=== PATIENT | female | born 1985 | race Caucasian/White ===

== ENCOUNTER 2021-02-15 08:30 | Outpatient (CLI) | payer OTHER, SELFPAY ==
[2021-02-15 19:15] LABS: Hematocrit 40.7 % (37.0-47.0); Hemoglobin 13.2 g/dL (12.0-15.0); Mean Corpuscular HGB Conc 32.4 g/dl (32-36); Mean Corpuscular Volume 92.5 fl (80-100); Mean Platelet Volume 10.4 fl (7.4-10.4); Platelet Count Result 197 k/mm3 (150-375); Red Cell Distribution Width 12.2 % (11.5-14.5); White Blood Count 4.8 K/mm3 (4.5-10.0)
[2021-02-15 19:22] LABS: Anion Gap 8 mmol/L (8-16); Blood Urea Nitrogen 15 mg/dL (7-17); Calcium 9.6 mg/dL (8.4-10.2); Carbon Dioxide 27 mmol/L (22-30); Chloride 104 mmol/L (98-107); Cholesterol 143 mg/dL (0-200); Estimated Glomerular Filt Rate > 60; Glucose 88 mg/dL (65-110); HDL Direct 67 mg/dL; Potassium 4.5 mmol/L (3.4-5.0); Sodium 139 mmol/L (137-145); Triglycerides 31 mg/dL (<150)
[2021-02-15 19:34] LABS: LDL Cholesterol Direct 55 mg/dL
[2021-02-15 19:39] LABS: Vitamin D 25 Hydroxy 48.3 ng/mL
== END 2021-02-15 08:31 | disposition home or self-care (01) ==
PROVIDERS: PCP Family Medicine; Visit Provider Physician Assistant Medical
DX: R53.82 Chronic fatigue, unspecified (principal); E55.9 Vitamin D deficiency, unspecified; Z13.1 Encounter for screening for diabetes mellitus; Z13.220 Encounter for screening for lipoid disorders
CPT/HCPCS: 36415; 80048; 80061; 82306; 82607; 85027

== ENCOUNTER 2023-01-30 08:24 | Outpatient (CLI) | payer OTHER, SELFPAY ==
[2023-01-30 15:24] LABS: Basophils Absolute Auto 0.1 K/mm3 (0.0-0.1); Basophils Percent Auto 1.3 % (0.2-1.2); Eosinophils Absolute Auto 0.2 K/mm3 (0-0.3); Eosinophils Percent Auto 4.4 % (0-4.4); Hematocrit 41.6 % (37.0-47.0); Hemoglobin 13.6 g/dL (12.0-15.0); Immature Granulocyte Absolute 0.01 K/mm3 (0.00-0.031); Immature Granulocyte Percent A 0.3 % (0-0.5); Lymphocytes Absolute Auto 1.22 K/mm3 (0.9-3.2); Lymphocytes Percent Auto 31.3 % (18.3-44.2); Mean Corpuscular HGB Conc 32.7 g/dl (32-36); Mean Corpuscular Hemoglobin 30.3 pg (26-34); Mean Corpuscular Volume 92.7 fl (80-100); Mean Platelet Volume 10.4 fl (7.4-10.4); Monocytes Absolute Auto 0.3 K/mm3 (0.1-0.6); Monocytes Percent Auto 8.7 % (2.6-8.5); Neutrophils Absolute Auto 2.1 K/mm3 (1.3-6.7); Platelet Count Result 206 k/mm3 (150-375); Red Blood Count 4.49 M/mm3 (4.2-5.4); White Blood Count 3.9 K/mm3 (4.5-10.0)
[2023-01-30 15:54] LABS: Vitamin D 25 Hydroxy 36.6 ng/mL
[2023-01-30 17:18] LABS: Iron 135 ug/dL (37-170)
[2023-01-30 17:32] LABS: Percent Iron Saturation 42 % (20-50)
[2023-02-05 05:10] LABS: FSH 6.7 mIU/mL (***); Progesterone 0.3 ng/mL (***); Prolactin 9.4 ng/mL (***)
[2023-02-05 22:26] LABS: Estradiol, Ultrasensitive 20 pg/mL
== END 2023-01-30 08:25 | disposition home or self-care (01) ==
LOC: ANHGOSHLAB 08:25
PROVIDERS: PCP Family Medicine; Visit Provider Obstetrics & Gynecology
DX: R53.82 Chronic fatigue, unspecified (principal); N92.0 Excessive and frequent menstruation with regular cycle
CPT/HCPCS: 36415; 82306; 82670; 83001; 83540; 83550; 84144; 84146; 84443; 85025

== ENCOUNTER 2023-04-23 16:32 | Outpatient (CLI) | payer OTHER, SELFPAY ==
--- NOTE | ~2023-04-23 | MM_ITS ---
EXAMINATION: MM screening ashutosh BI w tasha HISTORY: Screening TECHNIQUE: Craniocaudal and mediolateral oblique 3-D tomosynthesis images were obtained and synthetic 2-D images were generated. CAD analysis was submitted and interpreted. COMPARISON: No prior mammogram is available for comparison at this institution. BREAST PARENCHYMAL COMPOSITION: The breasts are extremely dense, which lowers the sensitivity of mamm ography FINDINGS: There is no evidence of suspicious mass, calcification, or architectural distortion to sugg est malignancy in either breast. There has been no suspicious interval change. IMPRESSION: 1. No mammographic evidence of malignancy. 2. Recommend routine screening mammography in one year. BI-RADS Category 1: Negative Reviewed, dictated and finalized at location A.
== END 2023-04-23 16:33 | disposition home or self-care (01) ==
PROVIDERS: PCP Family Medicine; Visit Provider Obstetrics & Gynecology
DX: Z12.31 Encounter for screening mammogram for malignant neoplasm of breast (principal)
CPT/HCPCS: 77063; 77067

== ENCOUNTER 2024-03-10 07:43 | Outpatient (CLI) | payer OTHER, SELFPAY ==
[2024-03-10 19:09] LABS: Alanine Aminotransferase 18 U/L (6-35); Alkaline Phosphatase 68 U/L (38-126); Anion Gap 8 mmol/L (4-12); Aspartate Amino Transferase 60 U/L (14-36); Bilirubin,Total 0.5 mg/dL (0.2-1.3); Blood Urea Nitrogen 11 mg/dL (7-17); Calcium 8.7 mg/dL (8.4-10.2); Carbon Dioxide 26 mmol/L (22-30); Chloride 104 mmol/L (98-107); Estimated Glomerular Filt Rate > 60; Glucose 82 mg/dL (65-110); Potassium 4.2 mmol/L (3.4-5.0); Sodium 138 mmol/L (137-145)
[2024-03-10 20:00] LABS: Hemoglobin A1C 4.7 % (<5.7)
== END 2024-03-10 07:44 | disposition home or self-care (01) ==
LOC: ANHBWCLAB 07:44
PROVIDERS: PCP Family Medicine; Visit Provider Nurse Practitioner Adult Health
DX: R73.09 Other abnormal glucose (principal)
CPT/HCPCS: 36415; 80053; 83036

== ENCOUNTER 2024-04-28 07:43 | Outpatient (CLI) | payer OTHER, SELFPAY ==
--- NOTE | ~2024-04-28 | MM_ITS ---
EXAMINATION: MM screening ashutosh BI w tasha HISTORY: Screening TECHNIQUE: Craniocaudal and mediolateral oblique 3-D tomosynthesis images were obtained and synthetic 2-D images were generated. CAD analysis was submitted and interpreted. COMPARISON: Comparison to multiple prior studies sequentially, with oldest reviewed study dated 03/2013. BREAST PARENCHYMAL COMPOSITION: Dense: The breasts are extremely dense, which lowers the sensitivity of mammography. FINDINGS: There is no evidence of suspicious mass, calcification, or architectural distortion to sugg est malignancy in either breast. There has been no suspicious interval change. IMPRESSION: 1. No mammographic evidence of malignancy. 2. Recommend routine screening mammography in one year. BI-RADS Category 1: Negative Reviewed, dictated and finalized at location B.
== END 2024-04-28 07:44 | disposition home or self-care (01) ==
LOC: ANHIMG 07:44
PROVIDERS: PCP Family Medicine; Visit Provider Obstetrics & Gynecology
DX: Z12.31 Encounter for screening mammogram for malignant neoplasm of breast (principal)
CPT/HCPCS: 77063; 77067

== ENCOUNTER 2024-11-15 07:33 | Outpatient (CLI) | payer BC, SELFPAY ==
--- OUTSIDE RECORDS SUMMARY | 2024-11-15 07:39 | XMS_ITS | Clinical Summary ---
Author Organization [facility] [employer] Address [address] [facility] [place] [address] Care Team Providers Care Business Continuity Specialist Name Role Phone Santy Driscoll MD Primary Care Provider [phone] [facility],non-owned Affiliates and Associated Physician Practices is amultiple site organization consisting of ambulatory clinics and hospital sitesin [place], [place], [place] and [place]. This disclosure is being madepursuant to the Care Everywhere program and may not contain all information available regarding this patient. Last updated 18.[facility] [employer] Allergies Active Allergy Reactions Criticality Noted Date Comments Azithromycin Rash Medium 10/07/2017 Sulfamethoxazole W-Trimethoprim Rash Medium 0404/2019 Cefuroxime Rash Medium 10/07/2017 Doxycycline Rash Medium 11/11/2018 Penicillins Urticaria Medium 10/07/2017 Medications * Be aware that medications may not be up to date on this document. Alwaysverify current medications with the patient. No known medications Social History Tobacco Use Types Packs/Day Years Used Date Smoking Tobacco: Never Smokeless Tobacco: Never Tobacco Cessation:Counseling Given: Yes Comments No Sex and Gender Information Value Date Recorded Sex Assigned at Not on file Legal Sex Female 7:46 AM FIELD HEALTH OFFICER Gender Identity Not on file Sexual Orientation Not on file Last Filed Vital Signs Vital Sign Reading Time Taken Comments Blood Pressure 120/78 11/08/2018 5:59 PM CDT Pulse 67 11/08/2018 5:59 PM CDT Temperature 36.8 C (98.2 F) 11/08/2018 5:59 PM CDT Respiratory Rate 16 11/08/2018 5:59 PM CDT Oxygen Saturation 98% 11/08/2018 5:59 PM CDT Inhaled Oxygen Concentration - - Weight 56.7 kg (125 lb) 11/08/2018 5:59 PM CDT Height 167.6 cm (5' 6 ) 11/08/2018 5:59 PM CDT Body Mass Index 20.18 11/08/2018 5:59 PM CDT Plan of Treatment Health Maintenance Due Date Last Done Comments LIPID TESTING 1983 MAMMOGRAM 1983 PAP SMEAR 1983 HIV SCREENING 1998 HEPATITIS C SCREENING 04/16/2001 DTAP/TDAP/TD VACCINES (1 - Tdap) 2002 HEPATITIS B VACCINE (1 of 3 - 19+ 3-dose series) 2002 COVID-19 VACCINE (1 - 2023-2 5 season) 2024 DEPRESSION SCREENING 08/03/2024 INFLUENZA VACCINE (Season Ended) 2025 ZOSTER VACCINE (1 of 2) 2033 HIB VACCINE Aged Out No longer eligi ble based on patient's age to complete this topic HPV VACCINE Aged Out No longer eligi ble based on patient's age to complete this topic MENINGOCOCCAL (Group B) VACC INE SHARED DECISION-MAKING Aged Out No longer eligibl e based on patient's age to complete this topic MENINGOCOCCAL GROUPS A/C/Y/W VACCINE Aged Out No longer eligible b ased on patient's age to complete this topic PNEUMOCOCCAL VACCINE Aged Out No long er eligible based on patient's age to complete this topic Insurance [facility] Care Teams Business Continuity Specialist Relationship Specialty Start Date End Date Santy Driscoll MD [address] [place] [id number] PCP - General Family Medicine 10/07/17
--- OUTSIDE RECORDS SUMMARY | 2024-11-15 07:39 | XMS_ITS | Clinical Summary ---
Author Organization [facility] Address [address] [place] [address] Care Team Providers Care Handhole Machine Operator Name Role Phone Santy Driscoll MD Primary Care Provider [phone] Todd Monsalve MD Unavailable [phone] Allergies Active Allergy Reactions Criticality Noted Date Comments Azithromycin Rash Medium 10/07/2017 Cefuroxime Rash Medium 10/07/2017 Doxycycline Rash Medium 11/11/2018 Penicillins Hives Medium 10/07/2017 Sulfamethoxazole-Trimethoprim Rash Medium 2018 Medications sertraline (ZOLOFT) 25 mg tablet Take 1 tablet (25 mg total) by mouth daily Active oxyCODONE-acetamino phen (PERCOCET) 5-325 mg per tabletIndications:P ain Take 1-2 tablets by mouth every 8 (eight) hours as needed for pain 20 tablet 3 Active ondansetron ODT (ZOFRAN-ODT) 4 mg disintegrating tablet Take 1 tablet (4 mg total) by mouth every 8 (eight) hours as needed for nausea or vomiting 20 tablet 3 Active polyethylene glycol (MIRALAX) 17 gram/dose bulk powder Take 17 g by mouth daily for 7 days 3 Active Active Problems Problem Noted Date Diagnosed Date Abdominal pain 07/03/2023 Menorrhagia 03/16/2021 Breast lump 03/16/2021 Engorgement of breasts 03/16/2021 depression 03/16/2021 Suppression of menstruation 03/16/2021 Threatened miscarriage 03/16/2021 Vaginitis 03/16/2021 Surgical History Surgery Date Site/Laterality Comments SECTION INTRAUTERINE DEVICE INSERTION Medical History Medical History Date Comments Depression Family History Medical History Relation Name Comments Arthritis Father Bladder Cancer Father Cancer Father Diabetes Father Throat cancer Father Cancer Mother Kidney cancer Mother Relation Name Status Comments Father Mother Social History Tobacco Use Types Packs/Day Years Used Date Smoking Tobacco: Never Smokeless Tobacco: Never AUDIT-C Answer Date Recorded Q1: How often do you have a drink containing alc ohol? Monthly or less 07/04/2023 Q2: How many drinks containi ng alcohol do you have on a typical day when you are drinking? 1 or 2 07/04/2023 Q3: How often do you have si x or more drinks on one occasion? Never 07/04/2023 Personal Safety Answer Date Recorded Have you ever been in or are you currently in a harmful physical or emotional relationship or is someone making you feel afraid or unsafe? Denies 07/04/2023 Comments No Sex and Gender Information Value Date Recorded Sex Assigned at Not on file Legal Sex Female 8:50 AM MARBLE SETTER Gender Identity Female 02/16/2018 8:28 AM CDT Sexual Orientation Not on file Obstetrics History Last Filed Vital Signs Vital Sign Reading Time Taken Comments Blood Pressure 115/74 07/05/2023 11:10 AM MARBLE SETTER Pulse 68 07/05/2023 11:10 AM MARBLE SETTER Temperature 36.3 C (97.4 F) 07/05/2023 11:10 AM MARBLE SETTER Respiratory Rate 20 07/05/2023 11:10 AM MARBLE SETTER Oxygen Saturation 100% 07/05/2023 11:10 AM MARBLE SETTER Inhaled Oxygen Concentration - - Weight 65 kg (143 lb 4.8 oz) 07/03/2023 11:58 PM MARBLE SETTER Height 167.6 cm (5' 6 ) 07/03/2023 11:58 PM MARBLE SETTER Body Mass Index 23.13 07/03/2023 11:58 PM MARBLE SETTER Plan of Treatment Health Maintenance Due Date Last Done Comments Cervical Cancer Screening 1983 Depression Screening 1983 Hepatitis C Screening 1983 Varicella Vaccines (1 of 2 - 13+ 2-dose series) 1996 Hepatitis B Screening 2001 Regular Well Visit/Exam 18-64 2001 Breast Cancer Screening-Mammogram 09/15/2017 09/15/2016 DTaP/Tdap/Td Vaccine (3 - Td or Tdap) 12/03/2023 12/02/2013, 12/02/2013 Influenza Vaccine (#1) 2024 7, 07/08/2014 HPV Vaccines Aged Out No longer eligi ble based on patient's age to complete this topic Pneumococcal vaccine <65 Aged Out No longer eligible based on patient's age to complete this topic Procedures Procedure Name Priority Date/Time Associated Diagnosis Comments DIAGNOSTIC MAMMOGRAM BILATERAL W TRELL Routine 09/15/2016 9:19 AM MARBLE SETTER from Last 3 Months or Most Recently Relevant to Health Maintenance Results * Diagnostic Mammogram Bilateral W Trell (09/15/2016 9:19 AM MARBLE SETTER) Anatomical Region Laterality Modality Breast Bilateral Mammography 09/15/2016 9:19 AM MARBLE SETTER Narrative 09/15/2016 12:46 PM MARBLE SETTER SAMIRA LINO M.D. FINAL REPORT ACC# Date Time Exam [id number] Sep 15, 2016 09:19:00 [facility] [address] Dig Breast Trell Rickie Technologist(s): Tamiko Lozano; ; [id number] Sep 15, 2016 08:44:00 [facility] [address] Breast US [facility] [id number] Sep 15, 2016 09:19:00 [facility] [address] Diag Mamm, inc CAD, bilat Technologist(s): Tamiko Lozano; ; EXAMINATION: LEFT BREAST SONOGRAM BILATERAL DIGITAL DIAGNOSTIC MAMMOGRAM WITH TOMOSYNTHESIS HISTORY: Persistent left breast pain and nodularity. No first degree family history of breast cancer. COMPARISON: None available. TECHNIQUE:Full field digital mammography was performed, including CAD and tomosynthesis. LEFT BREAST ULTRASOUND: Targeted ultrasound of the upper outer quadrant of the left breast in the area of pain identified by the patient was performed by the security inspector and by the radiologist. A few scattered subcentimeter simple cysts and clusters of simple cysts are incidentally noted in this area. At 1230, 4 cm from the nipple, there is an area of shadowing along converging tissue planes and a Tunde's ligament. A vessel courses through this area. During careful real-time scanning, there is no convincing mass or other suspicious sonographic abnormality. The area was marked by a triangle on the overlying skin, and a diagnostic mammogram was subsequently performed. BILATERAL DIGITAL DIAGNOSTIC MAMMOGRAM: The breasts are heterogeneously dense, which may obscure small masses. At the upper outer quadrant of the left breast, there is a triangular marker on the skin; the corresponding tissue has a normal mammographic appearance. There is no mass, suspicious calcification, or architectural distortion suggestive of malignancy in either breast. IMPRESSION: Mild fibrocystic changes in the area of pain at the upper outer quadrant of the left breast. RECOMMENDATION: Continued clinical followup is recommended. Any further evaluation of a palpable finding at this time should be determined by clinical assessment. Unless earlier screening as clinically indicated, annual mammography is recommended beginning at age 40. OVERALL BI-RADS ASSESSMENT: BI-RADS Category 2: Benign finding. Requested By: Janet Cancino SEWING MACHINE OPERATOR PLASTIC ZIPPER Dictated By: SAMIRA LINO M.D. on Sep 15 2016 12:46P This document has been electronically signed by: SAMIRA LINO M.D. on Sep 15 2016 12:46P [id number] Procedure Note Provider, MD Thuy - 12/09/2016 SAMIRA LINO M.D. FINAL REPORT ACC# Date Time Exam [id number] Sep 15, 2016 09:19:00 [facility] [address] Dig Breast Trell Rickie Technologist(s): Tamiko Lozano; ; [id number] Sep 15, 2016 08:44:00 [facility] [address] Breast US [facility] [id number] Sep 15, 2016 09:19:00 [facility] [address] [employer], inc CAD, bilat Technologist(s): Tamiko Lozano; ; EXAMINATION: LEFT BREAST SONOGRAM BILATERAL DIGITAL DIAGNOSTIC MAMMOGRAM WITH TOMOSYNTHESIS HISTORY: Persistent left breast pain and nodularity. No first degree family history of breast cancer. COMPARISON: None available. TECHNIQUE:Full field digital mammography was performed, including CAD and tomosynthesis. LEFT BREAST ULTRASOUND: Targeted ultrasound of the upper outer quadrant of the left breast in the area of pain identified by the patient was performed by the security inspector and by the radiologist. A few scattered subcentimeter simple cysts and clusters of simple cysts are incidentally noted in this area. At 1230, 4 cm from the nipple, there is an area of shadowing along converging tissue planes and a Tunde's ligament. A vessel courses through this area. During careful real-time scanning, there is no convincing mass or other suspicious sonographic abnormality. The area was marked by a triangle on the overlying skin, and a diagnostic mammogram was subsequentlyperformed. BILATERAL DIGITAL DIAGNOSTIC MAMMOGRAM: The breasts are heterogeneously dense, which may obscure small masses. At the upper outer quadrant of the left breast, there is a triangular marker on the skin; the corresponding tissue has a normal mammographic appearance. There is no mass, suspicious calcification, or architectural distortion suggestive of malignancy in either breast. IMPRESSION: Mild fibrocystic changes in the area of pain at the upper outer quadrant of the left breast. RECOMMENDATION: Continued clinical followup is recommended. Any further evaluation of a palpable finding at this time should be determined by clinical assessment. Unless earlier screening as clinically indicated, annual mammography is recommended beginning at age 40. OVERALL BI-RADS ASSESSMENT: BI-RADS Category 2: Benign finding. Requested By: Janet Cancino SEWING MACHINE OPERATOR PLASTIC ZIPPER Dictated By: SAMIRA LINO M.D. on Sep 15 2016 12:46P This document has been electronically signed by: SAMIRA LINO M.D. on Sep 15 2016 12:46P [id number] [facility] Provider MD ESPINO MAMMO PROCEDURES Maria C l Result from Last 3 Months or Most Recently Relevant to Health Maintenance Insurance [facility] Advance Directives For more information, please contact: [phone] * Full Code (Latest Code Status on File) Date Activated Date Inactivated Comments 07/03/2023 10:51 PM 07/05/2023 9:03 PM Care Teams Handhole Machine Operator Relationship Specialty Start Date End Date Santy Driscoll MD PCP - General Family Medicine 02/16/18 Todd Monsalve MD [address] [place] [address] [place] [address] Surgeon General Surgery 07/05/23
--- OUTSIDE RECORDS SUMMARY | 2024-11-15 07:39 | XMS_ITS | Referral Summary ---
Author Organization [facility] Address [address] [place] [address] Care Team Providers Care Warp Dyeing Vat Tender Name Role Phone Santy Driscoll MD Primary Care Provider [phone] Todd Monsalve MD Unavailable [phone] Allergies Active Allergy Reactions Criticality Noted Date [...] menstruation 03/16/2021 Threatened miscarriage 03/16/2021 Vaginitis 03/16/2021 Social History Tobacco Use Types Packs/Day Years [...] on file Legal Sex Female 8:50 AM ELEVATOR CONSTRUCTOR Gender Identity Female 02/16/2018 8:28 AM CDT Sexual Orientation Not on file Last Filed Vital Signs Vital Sign Reading Time Taken Comments Blood Pressure 115/74 07/05/2023 11:10 AM ELEVATOR CONSTRUCTOR Pulse 68 07/05/2023 11:10 AM ELEVATOR CONSTRUCTOR Temperature 36.3 C (97.4 F) 07/05/2023 11:10 AM ELEVATOR CONSTRUCTOR Respiratory Rate 20 07/05/2023 11:10 AM ELEVATOR CONSTRUCTOR Oxygen Saturation 100% 07/05/2023 11:10 AM ELEVATOR CONSTRUCTOR Inhaled Oxygen Concentration - - Weight 65 kg (143 lb 4.8 oz) 07/03/2023 11:58 PM ELEVATOR CONSTRUCTOR Height 167.6 cm (5' 6 ) 07/03/2023 11:58 PM ELEVATOR CONSTRUCTOR Body Mass Index 23.13 07/03/2023 11:58 PM ELEVATOR CONSTRUCTOR Plan of Treatment Not on file Procedures Procedure Name Priority Date/Time Associated Diagnosis Comments DIAGNOSTIC MAMMOGRAM BILATERAL W TRELL Routine 09/15/2016 9:19 AM ELEVATOR CONSTRUCTOR from Last 3 Months or Most Recently Relevant to Health Maintenance Results * Diagnostic Mammogram Bilateral W Trell (09/15/2016 9:19 AM ELEVATOR CONSTRUCTOR) Anatomical Region Laterality Modality Breast Bilateral Mammography 09/15/2016 9:19 AM ELEVATOR CONSTRUCTOR Narrative 09/15/2016 12:46 PM ELEVATOR CONSTRUCTOR SAMIRA LINO M.D. FINAL REPORT ACC# Date Time Exam [id number] Sep 15, 2016 09:19:00 [facility] [address] Dig Breast Trell Rickie Technologist(s): Tamiko Lozano; ; [id number] Sep 15, 2016 08:44:00 [facility] [address] Breast US [facility] [id number] Sep 15, 2016 09:19:00 [facility] [address] Diag Mamm, inc CAD, bilat Technologist(s): Tamiko [...] by the patient was performed by the mold maker helper and by the radiologist. A few scattered [...] 2: Benign finding. Requested By: Janet Cancino LOCOMOTIVE FIRER Dictated By: SAMIRA LINO M.D. on Sep 15 2016 12:46P This document has been electronically signed by: SAMIRA LINO M.D. on Sep 15 2016 12:46P [id number] Procedure Note Provider, MD Thuy - 12/09/2016 SAMIRA LINO M.D. FINAL REPORT [facility]# Date Time Exam [id number] Sep 15, 2016 09:19:00 [facility] [address] Dig Breast Trell Rickie Technologist(s): Tamiko Lozano; ; [id number] Sep 15, 2016 08:44:00 [facility] [address] Breast US [facility] [id number] Sep 15, 2016 09:19:00 [facility] [address] [employer] Mamm, inc CAD, bilat Technologist(s): Tamiko Lozano; [...] by the patient was performed by the mold maker helper and by the radiologist. A few scattered [...] 2: Benign finding. Requested By: Janet Cancino NP Dictated By: SAMIRA LINO M.D. on Sep 15 2016 12:46P This document has been electronically signed by: SAMIRA LINO M.D. on Sep 15 2016 12:46P [id number] Historical Provider MD ESPINO MAMMO PROCEDURES Maria C l Result from Last 3 Months or Most Recently Relevant to Health Maintenance Insurance [facility] Advance Directives For more information, please contact: [phone] * Full Code (Latest Code Status on File) Date Activated Date Inactivated Comments 07/03/2023 10:51 PM 07/05/2023 9:03 PM Care Teams Warp Dyeing Vat Tender Relationship Specialty Start Date End Date Santy Driscoll MD PCP - General Family Medicine 02/16/18 Todd Monsalve MD 4 [facility] [address] [address] Surgeon General Surgery 07/05/23
[2024-11-15 18:55] LABS: Basophils Absolute Auto 0.1 K/mm3 (0.0-0.1); Eosinophils Absolute Auto 0.2 K/mm3 (0-0.3); Eosinophils Percent Auto 4.2 % (0-4.4); Hematocrit 43.8 % (37.0-47.0); Hemoglobin 13.5 g/dL (12.0-15.0); Immature Granulocyte Absolute 0.01 K/mm3 (0.00-0.031); Immature Granulocyte Percent A 0.2 % (0-0.5); Lymphocytes Absolute Auto 1.32 K/mm3 (0.9-3.2); Lymphocytes Percent Auto 25.5 % (18.3-44.2); Mean Corpuscular HGB Conc 30.8 g/dl (32-36); Mean Corpuscular Hemoglobin 29.3 pg (26-34); Mean Platelet Volume 10.2 fl (7.4-10.4); Monocytes Absolute Auto 0.4 K/mm3 (0.1-0.6); Monocytes Percent Auto 8.1 % (2.6-8.5); Neutrophils Absolute Auto 3.2 K/mm3 (1.3-6.7); Platelet Count Result 222 k/mm3 (150-375); Red Blood Count 4.61 M/mm3 (4.2-5.4); Red Cell Distribution Width 12.3 % (11.5-14.5); White Blood Count 5.2 K/mm3 (4.5-10.0)
== END 2024-11-15 07:34 | disposition home or self-care (01) ==
PROVIDERS: PCP Family Medicine; Visit Provider Nurse Practitioner Adult Health
DX: R79.89 Other specified abnormal findings of blood chemistry (principal); R53.82 Chronic fatigue, unspecified; Z13.220 Encounter for screening for lipoid disorders; Z13.29 Encounter for screening for other suspected endocrine disorder
CPT/HCPCS: 36415; 80053; 80061; 84443; 85025

== ENCOUNTER 2024-11-21 08:34 | Outpatient (CLI) | payer BC, SELFPAY ==
--- OUTSIDE RECORDS SUMMARY | 2024-11-21 09:17 | XMS_ITS | Referral Summary ---
Author Organization [facility] Address [address] [place] [address] Care Team Providers Care Desktop Technician Name Role Phone Santy Driscoll MD Primary Care Provider [phone] Todd Monsalve MD Unavailable [phone] Allergies Active Allergy Reactions Criticality Noted Date [...] on file Legal Sex Female 8:50 AM COLLECTION SUPERVISOR Gender Identity Female 02/16/2018 8:28 AM CDT Sexual Orientation Not on file Last Filed Vital Signs Vital Sign Reading Time Taken Comments Blood Pressure 115/74 07/05/2023 11:10 AM COLLECTION SUPERVISOR Pulse 68 07/05/2023 11:10 AM COLLECTION SUPERVISOR Temperature 36.3 C (97.4 F) 07/05/2023 11:10 AM COLLECTION SUPERVISOR Respiratory Rate 20 07/05/2023 11:10 AM COLLECTION SUPERVISOR Oxygen Saturation 100% 07/05/2023 11:10 AM COLLECTION SUPERVISOR Inhaled Oxygen Concentration - - Weight 65 kg (143 lb 4.8 oz) 07/03/2023 11:58 PM COLLECTION SUPERVISOR Height 167.6 cm (5' 6 ) 07/03/2023 11:58 PM COLLECTION SUPERVISOR Body Mass Index 23.13 07/03/2023 11:58 PM COLLECTION SUPERVISOR Plan of Treatment Not on file Procedures Procedure Name Priority Date/Time Associated Diagnosis Comments DIAGNOSTIC MAMMOGRAM BILATERAL W TRELL Routine 09/15/2016 9:19 AM COLLECTION SUPERVISOR from Last 3 Months or Most Recently Relevant to Health Maintenance Results * Diagnostic Mammogram Bilateral W Trell (09/15/2016 9:19 AM COLLECTION SUPERVISOR) Anatomical Region Laterality Modality Breast Bilateral Mammography 09/15/2016 9:19 AM COLLECTION SUPERVISOR Narrative 09/15/2016 12:46 PM COLLECTION SUPERVISOR SAMIRA LINO M.D. FINAL REPORT [facility]# Date Time Exam [id number] Sep 15, 2016 09:19:00 [facility] [address] Dig Breast Trell Rickie Technologist(s): Tamiko Lozano; ; [id number] Sep 15, 2016 08:44:00 [facility] [address] Breast US [facility] [id number] Sep 15, 2016 09:19:00 [facility] [address] Diag Mamm, inc CAD, bilat Technologist(s): Tamiko [...] by the patient was performed by the bell attendant and by the radiologist. A few scattered [...] 2: Benign finding. Requested By: Janet Cancino MAGISTRATE ASSISTANT Dictated By: SAMIRA LINO M.D. on Sep 15 2016 12:46P This document has been electronically signed by: SAMIRA LINO M.D. on Sep 15 2016 12:46P [id number] Procedure Note Provider, MD Thuy - 12/09/2016 SAMIRA LINO M.D. FINAL REPORT [facility]# Date Time Exam [id number] Sep 15, 2016 09:19:00 [facility] [address] Dig Breast Trell Rickie Technologist(s): Tamiko Lozano; ; [id number] Sep 15, 2016 08:44:00 [facility] [address] Breast US [facility] [id number] Sep 15, 2016 09:19:00 [facility] [address] [employer] Mamm, inc CAD, bilat Technologist(s): Tamiko Lozano; [...] by the patient was performed by the bell attendant and by the radiologist. A few scattered [...] LINO M.D. on Sep 15 2016 12:46P [id number] Historical Provider MD ESPINO MAMMO PROCEDURES Maria C l Result from Last 3 Months or Most Recently Relevant to Health Maintenance Insurance [facility] CHO[facility] Address: [place] [address] [facility] Address: [place] [address] [facility] CHO[facility] PLUS [facility]O Address: [facility] [id number] [place] [address] Advance Directives For more information, please contact: [phone] * Full Code (Latest Code Status on File) Date Activated Date Inactivated Comments 07/03/2023 10:51 PM 07/05/2023 9:03 PM Care Teams Desktop Technician Relationship Specialty Start Date End Date Santy Driscoll MD PCP - General Family Medicine 02/16/18 Todd Monsalve MD 4 [facility] [address] [address] Surgeon General Surgery 07/05/23
--- OUTSIDE RECORDS SUMMARY | 2024-11-21 09:17 | XMS_ITS | Clinical Summary ---
Author Organization [facility] [address] Address [address] [facility] [place] [address] Care Team Providers Care Housing Counselor Name Role Phone Santy Driscoll MD Primary Care Provider [phone] Source Comments [facility],non-owned Affiliates and Associated Physician Practices is amultiple site organization consisting of ambulatory clinics and hospital sitesin [place], [place], [place] and [place]. This disclosure is being madepursuant to the Care Everywhere program and may not contain all information available regarding this patient. Last updated 18.[facility] [address] Allergies Active Allergy Reactions Criticality Noted Date [...] on file Legal Sex Female 7:46 AM WINDOWS ARCHITECT Gender Identity Not on file Sexual Orientation [...] Done Comments LIPID TESTING 1983 MAMMOGRAM 1983 HIV SCREENING 1998 HEPATITIS C SCREENING [...] patient's age to complete this topic Insurance [facility] Care Teams Housing Counselor Relationship Specialty Start Date End Date Santy Driscoll MD [address] [place] [address] PCP - General Family Medicine 10/07/17
--- OUTSIDE RECORDS SUMMARY | 2024-11-21 09:17 | XMS_ITS | Clinical Summary ---
Author Organization [facility] Address [address] [place] [address] Care Team Providers Care Behavioral Science Chair Name Role Phone Santy Driscoll MD Primary Care Provider [phone] Todd Monsalve MD Unavailable [phone] Allergies Active Allergy Reactions Criticality Noted Date [...] on file Legal Sex Female 8:50 AM BODY WORK AUTO TRIMMER Gender Identity Female 02/16/2018 8:28 AM CDT Sexual Orientation Not on file Obstetrics History Last Filed Vital Signs Vital Sign Reading Time Taken Comments Blood Pressure 115/74 07/05/2023 11:10 AM BODY WORK AUTO TRIMMER Pulse 68 07/05/2023 11:10 AM BODY WORK AUTO TRIMMER Temperature 36.3 C (97.4 F) 07/05/2023 11:10 AM BODY WORK AUTO TRIMMER Respiratory Rate 20 07/05/2023 11:10 AM BODY WORK AUTO TRIMMER Oxygen Saturation 100% 07/05/2023 11:10 AM BODY WORK AUTO TRIMMER Inhaled Oxygen Concentration - - Weight 65 kg (143 lb 4.8 oz) 07/03/2023 11:58 PM BODY WORK AUTO TRIMMER Height 167.6 cm (5' 6 ) 07/03/2023 11:58 PM BODY WORK AUTO TRIMMER Body Mass Index 23.13 07/03/2023 11:58 PM BODY WORK AUTO TRIMMER Plan of Treatment Health Maintenance Due Date [...] BILATERAL W TRELL Routine 09/15/2016 9:19 AM BODY WORK AUTO TRIMMER from Last 3 Months or Most Recently Relevant to Health Maintenance Results * Diagnostic Mammogram Bilateral W Trell (09/15/2016 9:19 AM BODY WORK AUTO TRIMMER) Anatomical Region Laterality Modality Breast Bilateral Mammography 09/15/2016 9:19 AM BODY WORK AUTO TRIMMER Narrative 09/15/2016 12:46 PM BODY WORK AUTO TRIMMER SAMIRA LINO M.D. FINAL REPORT ACC# Date Time Exam [id number] Sep 15, 2016 09:19:00 [facility] [address] Dig Breast Trell Rickie Technologist(s): Tamiko Lozano; ; [id number] Sep 15, 2016 08:44:00 [facility] [address] Breast US [facility] [id number] Sep 15, 2016 09:19:00 [facility] [address] Diag Mamm, inc CAD, bilat Technologist(s): Tamiko [...] by the patient was performed by the auto parts manager and by the radiologist. A few scattered [...] 2: Benign finding. Requested By: Janet Cancino CONTAINER COORDINATOR Dictated By: SAMIRA LINO M.D. on Sep 15 2016 12:46P This document has been electronically signed by: SAMIRA LINO M.D. on Sep 15 2016 12:46P [id number] Procedure Note Provider, MD Thuy - 12/09/2016 SAMIRA LINO M.D. FINAL REPORT ACC# Date Time Exam [id number] Sep 15, 2016 09:19:00 [facility] [address] Dig Breast Trell Rickie Technologist(s): Tamiko Lozano; ; [id number] Sep 15, 2016 08:44:00 [facility] [address] Breast US [facility], [facility] [id number] Sep 15, 2016 09:19:00 [facility] [address] [employer] CAD, bilat Technologist(s): Tamiko Lozano; ; [...] by the patient was performed by the auto parts manager and by the radiologist. A few scattered [...] 2: Benign finding. Requested By: Janet Cancino CONTAINER COORDINATOR Dictated By: SAMIRA LINO M.D. on Sep 15 2016 12:46P This document has been electronically signed by: SAMIRA LINO M.D. on Sep 15 2016 12:46P [id number] [facility] Provider MD ESPINO MAMMO PROCEDURES Maria C l Result from Last 3 Months or Most Recently Relevant to Health Maintenance Insurance [facility] CHOICE PLUS [facility] CHO[facility] PLUS [facility] CHOICE PLUS Advance Directives For more information, please contact: [phone] * Full Code (Latest Code Status on File) Date Activated Date Inactivated Comments 07/03/2023 10:51 PM 07/05/2023 9:03 PM Care Teams Behavioral Science Chair Relationship Specialty Start Date End Date Santy Driscoll MD PCP - General Family Medicine 02/16/18 Todd Monsalve MD [address] [place] [address] [place] [address] Surgeon General Surgery 07/05/23
[2024-11-21 19:43] LABS: Alanine Aminotransferase 24 U/L (6-35); Alkaline Phosphatase 75 U/L (38-126); Anion Gap 7 mmol/L (4-12); Aspartate Amino Transferase 57 U/L (14-36); Bilirubin,Total 0.5 mg/dL (0.2-1.3); Blood Urea Nitrogen 12 mg/dL (7-17); Calcium 8.7 mg/dL (8.4-10.2); Carbon Dioxide 25 mmol/L (22-30); Chloride 104 mmol/L (98-107); Cholesterol 146 mg/dL (0-200); Estimated Glomerular Filt Rate > 60; Glucose 78 mg/dL (65-110); HDL Direct 60 mg/dL; Potassium 4.2 mmol/L (3.4-5.0); Sodium 136 mmol/L (137-145); Triglycerides 33 mg/dL (<150)
[2024-11-21 19:54] LABS: LDL Cholesterol Direct 56 mg/dL
== END 2024-11-21 08:35 | disposition home or self-care (01) ==
PROVIDERS: Nurse Practitioner Family; PCP Family Medicine; Visit Provider Nurse Practitioner Adult Health
DX: R79.89 Other specified abnormal findings of blood chemistry (principal); R53.82 Chronic fatigue, unspecified; Z13.220 Encounter for screening for lipoid disorders; Z13.29 Encounter for screening for other suspected endocrine disorder
CPT/HCPCS: 36415; 80053; 80061; 84443

== ENCOUNTER 2024-11-28 08:38 | Outpatient (CLI) | payer BC, SELFPAY ==
--- OUTSIDE RECORDS SUMMARY | 2024-11-28 08:54 | XMS_ITS | Referral Summary ---
Author Organization [facility] Address [address] [place] [address] Care Team Providers Care Bushing And Broach Operator Name Role Phone Santy Driscoll MD Primary Care Provider [phone] Todd Monsalve MD Unavailable [phone] Allergies Active Allergy Reactions Criticality Noted Date [...] on file Legal Sex Female 8:50 AM CANOPY INSPECTOR Gender Identity Female 02/16/2018 8:28 AM CDT Sexual Orientation Not on file Last Filed Vital Signs Vital Sign Reading Time Taken Comments Blood Pressure 115/74 07/05/2023 11:10 AM CANOPY INSPECTOR Pulse 68 07/05/2023 11:10 AM CANOPY INSPECTOR Temperature 36.3 C (97.4 F) 07/05/2023 11:10 AM CANOPY INSPECTOR Respiratory Rate 20 07/05/2023 11:10 AM CANOPY INSPECTOR Oxygen Saturation 100% 07/05/2023 11:10 AM CANOPY INSPECTOR Inhaled Oxygen Concentration - - Weight 65 kg (143 lb 4.8 oz) 07/03/2023 11:58 PM CANOPY INSPECTOR Height 167.6 cm (5' 6 ) 07/03/2023 11:58 PM CANOPY INSPECTOR Body Mass Index 23.13 07/03/2023 11:58 PM CANOPY INSPECTOR Plan of Treatment Not on file Procedures Procedure Name Priority Date/Time Associated Diagnosis Comments DIAGNOSTIC MAMMOGRAM BILATERAL W TRELL Routine 09/15/2016 9:19 AM CANOPY INSPECTOR from Last 3 Months or Most Recently Relevant to Health Maintenance Results * Diagnostic Mammogram Bilateral W Trell (09/15/2016 9:19 AM CANOPY INSPECTOR) Anatomical Region Laterality Modality Breast Bilateral Mammography 09/15/2016 9:19 AM CANOPY INSPECTOR Narrative 09/15/2016 12:46 PM CANOPY INSPECTOR SAMIRA LINO M.D. FINAL REPORT ACC# Date Time Exam [id number] Sep 15, 2016 09:19:00 [facility] [address] Dig Breast Trell Rickie Technologist(s): aTmiko Lozano; ; [id number] Sep 15, 2016 08:44:00 [facility] [address] Breast US [facility] [id number] Sep 15, 2016 09:19:00 [facility] [address] Diag Mamm, inc CAD, bilat Technologist(s): Tamiko [...] by the patient was performed by the rolfer and by the radiologist. A few scattered [...] 2: Benign finding. Requested By: Janet Cancino LEAD DATA ENTRY OPERATOR Dictated By: SAMIRA LINO M.D. on Sep 15 2016 12:46P This document has been electronically signed by: SAMIRA LINO M.D. on Sep 15 2016 12:46P [id number] Procedure Note Provider, MD Thuy - 12/09/2016 SAMIRA LINO M.D. FINAL REPORT [facility]# Date Time Exam [id number] Sep 15, 2016 09:19:00 [facility] [address] Dig Breast Trell Rickie Technologist(s): Tamiko Lozano; ; [id number] Sep 15, 2016 08:44:00 [facility] [address] Breast US [facility], [facility] [id number] Sep 15, 2016 09:19:00 [facility] [address] [employer] Mamm, inc CAD, bilat Technologist(s): Tamiko Lozano; [...] by the patient was performed by the rolfer and by the radiologist. A few scattered [...] LINO M.D. on Sep 15 2016 12:46P [id number] Historical Provider MD ESPINO MAMMO PROCEDURES Maria C l Result from Last 3 Months or Most Recently Relevant to Health Maintenance Insurance [facility] CHOICE PLUS [facility] CHOICE PLUS [facility] CHOICE PLUS Advance Directives For more information, please contact: [phone] * Full Code (Latest Code Status on File) Date Activated Date Inactivated Comments 07/03/2023 10:51 PM 07/05/2023 9:03 PM Care Teams Bushing And Broach Operator Relationship Specialty Start Date End Date Santy Driscoll MD PCP - General Family Medicine 02/16/18 Todd Monsalve MD [address] [facility] [address] [address] Surgeon General Surgery 07/05/23
--- OUTSIDE RECORDS SUMMARY | 2024-11-28 08:54 | XMS_ITS | Clinical Summary ---
Author Organization [facility] Address [address] [place] [address] Care Team Providers Care Timber Robber Name Role Phone Santy Driscoll MD Primary Care Provider [phone] Todd Monsalve MD Unavailable [phone] Allergies Active Allergy Reactions Criticality Noted Date [...] on file Legal Sex Female 8:50 AM CHIEF OF FIELD OPERATIONS Gender Identity Female 02/16/2018 8:28 AM CDT Sexual Orientation Not on file Obstetrics History Last Filed Vital Signs Vital Sign Reading Time Taken Comments Blood Pressure 115/74 07/05/2023 11:10 AM CHIEF OF FIELD OPERATIONS Pulse 68 07/05/2023 11:10 AM CHIEF OF FIELD OPERATIONS Temperature 36.3 C (97.4 F) 07/05/2023 11:10 AM CHIEF OF FIELD OPERATIONS Respiratory Rate 20 07/05/2023 11:10 AM CHIEF OF FIELD OPERATIONS Oxygen Saturation 100% 07/05/2023 11:10 AM CHIEF OF FIELD OPERATIONS Inhaled Oxygen Concentration - - Weight 65 kg (143 lb 4.8 oz) 07/03/2023 11:58 PM CHIEF OF FIELD OPERATIONS Height 167.6 cm (5' 6 ) 07/03/2023 11:58 PM CHIEF OF FIELD OPERATIONS Body Mass Index 23.13 07/03/2023 11:58 PM CHIEF OF FIELD OPERATIONS Plan of Treatment Health Maintenance Due Date [...] BILATERAL W TRELL Routine 09/15/2016 9:19 AM CHIEF OF FIELD OPERATIONS from Last 3 Months or Most Recently Relevant to Health Maintenance Results * Diagnostic Mammogram Bilateral W Trell (09/15/2016 9:19 AM CHIEF OF FIELD OPERATIONS) Anatomical Region Laterality Modality Breast Bilateral Mammography 09/15/2016 9:19 AM CHIEF OF FIELD OPERATIONS Narrative 09/15/2016 12:46 PM CHIEF OF FIELD OPERATIONS SAMIRA LINO M.D. FINAL REPORT ACC# Date Time Exam [id number] Sep 15, 2016 09:19:00 [facility] [address] Dig Breast Trell Rickie Technologist(s): Tamiko Lozano; ; [id number] Sep 15, 2016 08:44:00 [facility] [address] Breast US [facility] [id number] Sep 15, 2016 09:19:00 [facility] [address] Diag Mamm, inc CAD, bilat Technologist(s): Tamiko [...] by the patient was performed by the fitness assistant and by the radiologist. A few scattered [...] 2: Benign finding. Requested By: Janet Cancino VIDEO PHOTOGRAPHER Dictated By: SAMIRA LINO M.D. on Sep 15 2016 12:46P This document has been electronically signed by: SAMIRA LINO M.D. on Sep 15 2016 12:46P [id number] Procedure Note Provider, MD Thuy - 12/09/2016 SAMIRA LINO M.D. FINAL REPORT ACC# Date Time Exam [id number] Sep 15, 2016 09:19:00 [facility] [address] Dig Breast Trell Rickie Technologist(s): Tamiko Lozano; ; [id number] Sep 15, 2016 08:44:00 [facility] [address] Breast US [facility], [facility] [id number] Sep 15, 2016 09:19:00 [facility] [address] [employer] CAD, bilat Technologist(s): Tamiko Lozano; ; [...] by the patient was performed by the fitness assistant and by the radiologist. A few scattered [...] 2: Benign finding. Requested By: Janet Cancino VIDEO PHOTOGRAPHER Dictated By: SAMIRA LINO M.D. on Sep 15 2016 12:46P This document has been electronically signed by: SAMIRA LINO M.D. on Sep 15 2016 12:46P [id number] [facility] Provider MD ESPINO MAMMO PROCEDURES Maria C l Result from Last 3 Months or Most Recently Relevant to Health Maintenance Insurance [facility] CHO[facility]US [facility] CHO[facility] PLUS Advance Directives For more information, please contact: [phone] * Full Code (Latest Code Status on File) Date Activated Date Inactivated Comments 07/03/2023 10:51 PM 07/05/2023 9:03 PM Care Teams Timber Robber Relationship Specialty Start Date End Date Santy Driscoll MD PCP - General Family Medicine 02/16/18 Todd Monsalve MD [address] [place] [address] [place] [address] Surgeon General Surgery 07/05/23
--- OUTSIDE RECORDS SUMMARY | 2024-11-28 08:54 | XMS_ITS | Clinical Summary ---
Author Organization [facility] [employer] Address [address] [facility] [place] [address] Care Team Providers Care Physical Scientist Name Role Phone Santy Driscoll MD Primary Care Provider [phone] Source Comments [facility],non-owned Affiliates and Associated Physician Practices is amultiple site organization consisting of ambulatory clinics and hospital sitesin [place], [place], [place] and [place]. This disclosure is being madepursuant to the Care Everywhere program and may not contain all information available regarding this patient. Last updated 18.[facility] [employer] Allergies Active Allergy Reactions Criticality Noted Date [...] on file Legal Sex Female 7:46 AM MANAGER RESOURCE Gender Identity Not on file Sexual Orientation [...] patient's age to complete this topic Insurance [facility] Care Teams Physical Scientist Relationship Specialty Start Date End Date Santy Driscoll MD [address] [place] [address] PCP - General Family Medicine 10/07/17
[2024-11-28 11:52] LABS: Alanine Aminotransferase 19 U/L (6-35); Albumin Level 4.1 g/dL (3.5-5.1); Alkaline Phosphatase 80 U/L (38-126); Amylase 73 U/L (30-110); Anion Gap 6 mmol/L (4-12); Aspartate Amino Transferase 37 U/L (14-36); Bilirubin,Total 0.4 mg/dL (0.2-1.3); Blood Urea Nitrogen 14 mg/dL (7-17); Calcium 8.6 mg/dL (8.4-10.2); Carbon Dioxide 28 mmol/L (22-30); Chloride 103 mmol/L (98-107); Estimated Glomerular Filt Rate > 60; Glucose 80 mg/dL (65-110); Lipase 41 U/L (23-300); Potassium 4.1 mmol/L (3.4-5.0); Sodium 137 mmol/L (137-145)
[2024-11-28 12:27] LABS: Hepatitis B Surface Antigen Negative (Negative)
[2024-11-28 12:33] LABS: HAV RESULT Negative (Negative); Hepatitis B Core IgM Result Negative (Negative)
[2024-11-28 12:45] LABS: Hepatitis C Virus Antibody Negative (Negative)
[2024-11-29 08:53] LABS: GGT 7 U/L (3-55)
== END 2024-11-28 08:39 | disposition home or self-care (01) ==
LOC: ANHGOSHLAB 08:39
PROVIDERS: PCP Family Medicine; Visit Provider Nurse Practitioner Adult Health
DX: R79.89 Other specified abnormal findings of blood chemistry (principal); R94.4 Abnormal results of kidney function studies
CPT/HCPCS: 36415; 80053; 80074; 82150; 82977; 83690

== ENCOUNTER 2024-11-29 08:12 | Outpatient (CLI) | payer BC, SELFPAY ==
--- NOTE | ~2024-11-29 | US_ITS ---
Abdominal Sonogram: Real-time sonographic imaging of the abdomen was performed. Clinical History: Abnormal findings of blood chemistry Findings: The liver appears normal with no evidence of mass lesion or bile duct dilatation. Main por eve vein demonstrates normal direction of flow. The spleen is normal in size without evidence of foca l lesion. The gallbladder is absent, compatible prior cholecystectomy. The common bile duct measures 6 mm. The visualized pancreas, aorta, and IVC are unremarkable. The right kidney measures 9.7 cm i n length and the left kidney measures 10.8 cm. There is no hydronephrosis or renal calculus. Impression: Status post cholecystectomy, otherwise unremarkable exam. Reviewed, dictated and finalized at location M. Impression: Status post cholecystectomy, otherwise unremarkable exam.
== END 2024-11-29 08:13 | disposition home or self-care (01) ==
PROVIDERS: PCP Family Medicine; Visit Provider Nurse Practitioner Adult Health
DX: R79.89 Other specified abnormal findings of blood chemistry (principal); Z90.49 Acquired absence of other specified parts of digestive tract
CPT/HCPCS: 76700

== ENCOUNTER 2024-12-27 13:02 | Outpatient (CLI) | payer BC, SELFPAY ==
--- OUTSIDE RECORDS SUMMARY | 2024-12-27 13:10 | XMS_ITS | Clinical Summary ---
Author Organization [facility] [employer] Address [address] [facility] [place] [address] Care Team Providers Care Mechatronics Technician Name Role Phone Santy Driscoll MD Primary Care Provider Source Comments [facility],non-owned Affiliates and Associated Physician Practices is amultiple site organization consisting of ambulatory clinics and hospital sitesin [place], [place], [place] and [place]. This disclosure is being madepursuant to the Care Everywhere program and may not contain all information available regarding this patient. Last updated 18.[facility] [employer] Allergies Active Allergy Reactions Criticality Noted Date [...] on file Legal Sex Female 7:46 AM BIOFUELS PRODUCTION ASSOCIATE Gender Identity Not on file Sexual Orientation [...] 5:59 PM CDT Height 167.6 cm (5' 6) 11/08/2018 5:59 PM CDT Body Mass Index [...] patient's age to complete this topic Insurance [facility] Care Teams Mechatronics Technician Relationship Specialty Start Date End Date Santy Driscoll MD [address] [place] [address] PCP - General Family Medicine 10/07/17
[2024-12-28 12:13] LABS: Prolactin 9.6 ng/mL
[2024-12-31 04:44] LABS: Testosterone Total 21 ng/dL (2-45)
== END 2024-12-27 13:03 | disposition home or self-care (01) ==
LOC: ANHGOSHLAB 13:04
PROVIDERS: PCP Obstetrics & Gynecology; Visit Provider Obstetrics & Gynecology
DX: N64.52 Nipple discharge (principal)
CPT/HCPCS: 36415; 84146; 84403; 84443

== ENCOUNTER 2025-01-09 07:59 | Outpatient (CLI) | payer BC, SELFPAY ==
--- NOTE | ~2025-01-09 | US_ITS ---
Please see diagnostic mammogram report dated 01/09/2025 for details. Reviewed, dictated and finalized at location []
--- NOTE | ~2025-01-09 | MM_ITS ---
EXAMINATION: MM diagnostic ashutosh BI w tasha HISTORY: Nipple discharge. Breast pain. TECHNIQUE: Additional 3-D tomosynthesis images of the breasts were performed and synthetic 2-D images were generated. CAD analysis was submitted and interpreted. High resolution bilateral complete breas t ultrasound was performed. COMPARISON: Comparison to multiple prior studies sequentially, with oldest reviewed study dated 04/23. BREAST PARENCHYMAL COMPOSITION: Dense: The breasts are heterogeneously dense, which may obscure small masses FINDINGS: MAMMOGRAPHIC FINDINGS: There are no suspicious masses, calcifications or architectural distortion in either breast to sugges t malignancy. ULTRASOUND: Complete US of all 4 quadrants of the breast/s and retroareolar region was reviewed. Right breast: At 2:00, 4 cm from the nipple there is a 7 mm cyst. At 8:00, 3 cm from the nipple there is a heterogeneous slightly irregular shaped 8mm mass with parallel orientation, no internal vascula rity and no posterior features. There are areas of focal internal echogenicity within the mass, nonsp ecific. 10:00, 5 cm from the nipple there is an oval circumscribed parallel oriented 12 mm mass witho ut internal vascularity. There are subtle posterior acoustic enhancement. At 11:00, 5 cm from the nip ple there is a 4 mm cyst. Left breast: At 1:00, 6 cm from the nipple in the area of palpable concern there is a small cluster o f hypoechoic masses one of which contains heterogeneous internal echotexture, slightly irregular jerry ins measuring 9 x 4 x 5 mm. There is a cluster of microcysts at this location also. IMPRESSION: 1. Abnormal masses of both breasts. In the right breast at 8:00, 3 cm from the nipple there is an 8mm mass which is suspicious. In the left breast at 1:00, 6 cm from the nipple there is a 9 mm heterogen eous appearing mass. 2. Ultrasound-guided bilateral breast biopsy recommended. BI-RADS category 4, suspicious findings. Reviewed, dictated and finalized at location [] IMPRESSION: 1. Abnormal masses of both breasts. In the right breast at 8:00, 3 cm from the nipple there is an 8mm mass which is suspicious. In the left breast at 1:00, 6 cm from the nipple there is a 9 mm heterogeneous appearing mass. 2. Ultrasound-guided bilateral breast biopsy recommended. BI-RADS category 4, suspicious findings.
== END 2025-01-09 08:00 | disposition home or self-care (01) ==
LOC: MICIMG 08:00
PROVIDERS: PCP Obstetrics & Gynecology; Visit Provider Obstetrics & Gynecology
DX: N63.13 Unspecified lump in the right breast, lower outer quadrant (principal); N63.21 Unspecified lump in the left breast, upper outer quadrant
CPT/HCPCS: 76641; 77062; 77066; G0279

== ENCOUNTER 2025-03-15 08:25 | Emergency (ER) | payer BC, SELFPAY ==
--- OUTSIDE RECORDS SUMMARY | 2025-03-15 08:29 | XMS_ITS | Clinical Summary ---
Author Organization [facility] Address [address] [place] [address] Care Team Providers Care Senior Sharepoint Developer Name Role Phone Santy Driscoll MD Primary Care Provider [phone] Todd Monsalve MD Unavailable [phone] Allergies Active Allergy Reactions Criticality Noted Date [...] on file Legal Sex Female 8:50 AM LOSS PREVENTION OPERATIONS MANAGER Gender Identity Female 02/16/2018 8:28 AM CDT Sexual Orientation Not on file Obstetrics History Last Filed Vital Signs Vital Sign Reading Time Taken Comments Blood Pressure 115/74 07/05/2023 11:10 AM LOSS PREVENTION OPERATIONS MANAGER Pulse 68 07/05/2023 11:10 AM LOSS PREVENTION OPERATIONS MANAGER Temperature 36.3 C (97.4 F) 07/05/2023 11:10 AM LOSS PREVENTION OPERATIONS MANAGER Respiratory Rate 20 07/05/2023 11:10 AM LOSS PREVENTION OPERATIONS MANAGER Oxygen Saturation 100% 07/05/2023 11:10 AM LOSS PREVENTION OPERATIONS MANAGER Inhaled Oxygen Concentration - - Weight 65 kg (143 lb 4.8 oz) 07/03/2023 11:58 PM LOSS PREVENTION OPERATIONS MANAGER Height 167.6 cm (5' 6) 07/03/2023 11:58 PM LOSS PREVENTION OPERATIONS MANAGER Body Mass Index 23.13 07/03/2023 11:58 PM LOSS PREVENTION OPERATIONS MANAGER Plan of Treatment Health Maintenance Due Date Last Done Comments Cervical Cancer Screening 1983 Depression Screening 1983 Hepatitis C Screening 1983 Varicella Vaccines (1 of 2 - 13+ 2-dose series) 1996 Hepatitis B Screening 2001 Regular Well Visit/Exam 18-64 2001 HPV Vaccines (1 - 3-dose SCD M series) 2010 Breast Cancer Screening-Mammogram 09/15/2017 09/15/2016 DTaP/Tdap/Td Vaccine (3 - Td or Tdap) 12/03/2023 12/02/2013, 12/02/2013 Influenza Vaccine (#1) 2025 7, 07/08/2014 Pneumococcal vaccine <65 Aged Out No longer eligible based on patient's age to complete this topic Procedures Procedure Name Priority Date/Time Associated Diagnosis Comments DIAGNOSTIC MAMMOGRAM BILATERAL W TRELL Routine 09/15/2016 9:19 AM LOSS PREVENTION OPERATIONS MANAGER from Last 3 Months or Most Recently Relevant to Health Maintenance Results * Diagnostic Mammogram Bilateral W Trell (09/15/2016 9:19 AM LOSS PREVENTION OPERATIONS MANAGER) Anatomical Region Laterality Modality Breast Bilateral Mammography 09/15/2016 9:19 AM LOSS PREVENTION OPERATIONS MANAGER Narrative 09/15/2016 12:46 PM LOSS PREVENTION OPERATIONS MANAGER SAMIRA LINO M.D. FINAL REPORT ACC# Date Time Exam [id number] Sep 15, 2016 09:19:00 [facility] [address] Dig Breast Trell Rickie Technologist(s): Tamiko Lozano; ; [id number] Sep 15, 2016 08:44:00 [facility] [address] Breast US [facility] [id number] Sep 15, 2016 09:19:00 [facility] [address] Diag Mamm, inc CAD, bilat Technologist(s): Tamiko [...] by the patient was performed by the wagon winder and by the radiologist. A few scattered [...] 2: Benign finding. Requested By: Janet Cancino IRRIGATIONIST Dictated By: SAMIRA LINO M.D. on Sep 15 2016 12:46P This document has been electronically signed by: SAMIRA LINO M.D. on Sep 15 2016 12:46P [id number] Procedure Note Provider, MD Thuy - 12/09/2016 SAMIRA LINO M.D. FINAL REPORT ACC# Date Time Exam [id number] Sep 15, 2016 09:19:00 [facility] 368[address] Dig Breast Trell Rickie Technologist(s): Tamiko Lozano; ; [id number] Sep 15, 2016 08:44:00 [facility] [address] Breast US [facility], [facility] [id number] Sep 15, 2016 09:19:00 [facility] [address] [employer] CAD, bilat Technologist(s): Tamiko Lozano; ; [...] by the patient was performed by the wagon winder and by the radiologist. A few scattered [...] 2: Benign finding. Requested By: Janet Cancino IRRIGATIONIST Dictated By: SAMIRA LINO M.D. on Sep 15 2016 12:46P This document has been electronically signed by: SAMIRA LINO M.D. on Sep 15 2016 12:46P [id number] [facility] Provider MD ESPINO MAMMO PROCEDURES Maria C l Result from Last 3 Months or Most Recently Relevant to Health Maintenance Insurance [facility] CHO[facility] PLUS [facility] PLUS [facility] PLUS Advance Directives For more information, please contact: [phone] * Full Code (Latest Code Status on File) Date Activated Date Inactivated Comments 07/03/2023 10:51 PM 07/05/2023 9:03 PM Care Teams Senior Sharepoint Developer Relationship Specialty Start Date End Date Santy Driscoll MD PCP - General Family Medicine 02/16/18 Todd Monsalve MD [address] [place] [address] [address] [place] [place] [address] Surgeon General Surgery 07/05/23
--- OUTSIDE RECORDS SUMMARY | 2025-03-15 08:29 | XMS_ITS | Clinical Summary ---
Author Organization [facility] [employer] Address [address] [facility] [place] [address] Care Team Providers Care Pocket Assembler Name Role Phone Santy Driscoll MD Primary Care Provider [phone] Source Comments [facility],non-owned Affiliates and Associated Physician Practices is amultiple site organization consisting of ambulatory clinics and hospital sitesin [place], [place], [place] and [place]. This disclosure is being madepursuant to the Care Everywhere program and may not contain all information available regarding this patient. Last updated 18.[facility] [employer] Allergies Active Allergy Reactions Criticality Noted Date [...] on file Legal Sex Female 7:46 AM CENTER SALES AND SERVICE ASSOCIATE Gender Identity Not on file Sexual [...] of 3 - 19+ 3-dose series) 2002 HPV VACCINE (1 - 3-dose SCDM series) 2010 COVID-19 VACCINE ( - 2023-2 5 season) 2024 DEPRESSION SCREENING 08/03/2024 INFLUENZA VACCINE (#1) 2025 ZOSTER VACCINE (1 of 2) 2033 [...] [facility] Care Teams Pocket Assembler Relationship Specialty Start Date End Date Santy Driscoll MD [address] [place] [address] PCP - General Family Medicine 10/07/17
[2025-03-15 08:30] VITALS: BP 129/81; PULSE 73; RESP 14; TEMP 36.9; O2SAT 99
--- NOTE | 2025-03-15 08:32 | ED.SKABFB ---
HPI - Skin/Abscess/Foreign Bdy General Chief complaint: Wound/Laceration Stated complaint: pillar cyst on head/ swelling behind right ear Time Seen by Provider: 03/15/25 08:27 Source: patient Mode of arrival: ambulatory Limitations: no limitations History of Present Illness HPI narrative: Courtney is a 39-year-old female patient presenting to the clinic today with multiple complaints. Concerns of a Pilar cyst on her head that is draining, sinus pressure/nasal congestion with green nasal discharge, and some right ear pain/swelling behind her right ear. States the pilar cyst on her head has been bothering her for the past 4 weeks. Cyst is drainage and she endorse foul smelling odor. Sinus pressure and congestion has been going on for the past 10 days. Blowing out green nasal discharge. Has been taking Claritin D for her symptoms. Also reports swelling and pain behind the posterior ear x 2 weeks. Has been traveling and just got back into town 1 week ago. Denies any fever, chills, or body aches. Denies any chest pain or shortness of breath. Patient is allergic to multiple antibiotics-penicillin, azithromycin, Ceftin, doxycycline, gemifloxacin, and Bactrim. Related Data Allergies Allergy/AdvReac Type Severity Reaction Status Date / Time gemifloxacin Allergy Intermediate Unknown Verified 01/10/25 14:07 azithromycin Allergy Unknown Unknown Verified 01/10/25 14:07 cefuroxime Allergy Unknown red/purple Verified 01/10/25 14:07 bumps Penicillins Allergy Unknown Unknown Verified 01/10/25 14:07 Review of Systems Review of Systems: Pertinent positives per HPI. Patient denies any fever, chills, rash, headache, visual changes, dizziness, cough, shortness of breath, chest pain, palpitations, nausea, vomiting, diarrhea, constipation, abdominal pain, or any urinary issues. [facility] Past Medical History Medical History Mass of left axilla Need for lipid screening Screening for thyroid disorder Decreased creatinine clearance Elevated LFTs Elevated hemoglobin A1c Screening mammogram for breast cancer Needs flu shot Routine history and physical examination of adult Screening for diabetes mellitus Surgical History Surgical History S/P cholecystectomy H/O gynecological procedure 03/2018 [facility] Delivery by section S/P excision of skin lesion, follow-up exam Family History Family History Other Depression Diabetes mellitus Hypertension Social History Social History Smoking status: Never smoker Alcohol intake: never Substance use: never Substance use type: does not use Do You Feel Safe in your Home?: Yes Lack of Transportation: No Lack of Food: Never True Current Housing: I Have Housing Concerned About Future Housing: No Difficulty Paying Gas/Electric Bills: No Difficulty Paying for Meds: No Currently Unemployed: No Education: Bachelor's Degree Difficulty w/ Childcare or Family Care: No Living arrangements: with family Occupation/Education: occupation 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 There is no relevant family history pertinent to the patient complaint. Exam Narrative: General: Well-developed, well nourished, in no apparent distress Head: Normocephalic, atraumatic, two pilar cyst to the right scalp- one measuring approx 1x1.5cm and the other is flat/draining red/clear fluid Eyes: Pupils equally round and reactive to light bilaterally, EOM intact, sclera and conjunctive clear, no discharge, lids normal Ears: TMs intact and clear,very mild swelling and tenderness to palpation over the posterior auricle lymph nodes, ear canals clear, no drainage, grossly hearing normal. Nose: Nares patent, clear nasal discharge,moderate inflammation, maxillary sinus tenderness. Mouth: Oral pharynx without lesions or masses, good dentition, MMM. Neck: Supple, trachea midline, no enlargement of anterior or posterior cervical nodes, no thyroid masses or goiter palpable. Cardio: Regular rate and rhythm, s1 and s2 normal, no murmur appreciated. Resp: Clear to auscultation bilaterally, no rhonchi, rales, wheezing or rubs Course Course Emergency Course: Portions of this record may have been created with voice recognition software. Level of Care: Express Care Visit Vital Signs Vital signs: Vital Signs Temperature 36.9 C 03/15/25 08:30 Pulse Rate 73 03/15/25 08:30 Respiratory Rate 14 03/15/25 08:30 Blood Pressure 129/81 03/15/25 08:30 Pulse Oximetry 99 03/15/25 08:30 Oxygen Delivery Room Air 03/15/25 08:30 Temperature 36.9 C 03/15/25 08:30 Pulse Rate 73 03/15/25 08:30 Respiratory Rate 14 03/15/25 08:30 Blood Pressure 129/81 03/15/25 08:30 Pulse Oximetry 99 03/15/25 08:30 Oxygen Delivery Room Air 03/15/25 08:30 Vital signs reviewed MDM - Skin/Abscess/Foreign Bdy MDM Narrative Medical decision making narrative: At the time of visit patient is resting comfortably on the exam table. Patient appears to be nontoxic. Concerns of a Pilar cyst on her head that is draining, sinus pressure/nasal congestion with green nasal discharge, and some right ear pain/swelling behind her right ear. States the pilar cyst on her head has been bothering her for the past 4 weeks. Cyst is drainage and she endorse foul smelling odor. Sinus pressure and congestion has been going on for the past 10 days. Blowing out green nasal discharge. Has been taking Claritin D for her symptoms. Also reports swelling and pain behind the posterior ear x 2 weeks. Has been traveling and just got back into town 1 week ago. Denies any fever, chills, or body aches. Denies any chest pain or shortness of breath. Patient is allergic to multiple antibiotics-penicillin, azithromycin, Ceftin, doxycycline, gemifloxacin, and Bactrim. On exam patient has two area of the right scalp with pilar cyst- 1 drainage a red/clear fluid- wound culture obtained. She has tenderness to the sinus pressure/nasal congestion- report green discharge. Right ear normal on exam but does have some tenderness over the posterior auricle lymph nodes and some discomfort over the eustachian tube. No significant swelling, erythema or redness to the posterior auricle area consistent with mastoiditis. Wound culture was ordered. Will await on culture and sensitivity for treatment as patient has multiple antibiotic drug allergies. Labs: Wound culture obtained and sent to the lab Plan: I suspect patient has sinusitis, post auricle lymph node tenderness, and Pilar cyst-Continue current medications as prescribed. Will send cyst culture and sensitivity to determine appropriate antibiotics. Supportive measures were discussed with the patient and they voiced understanding discharge instructions and agrees to treatment plan. Return precautions reviewed Differential Diagnosis Differential diagnosis: Likely abscess of skin or subcutaneous tissue, viral exanthem, dermatophytosis, urticaria, herpes zoster, allergic reaction to drug, cellulitis, eczema, insect bites, impetigo and contact dermatitis Discharge Plan Discharge Clinical Impression: Pilar cyst of scalp, Posterior auricular lymphadenopathy Sinusitis Qualifiers: Sinusitis location: maxillary Chronicity: acute Recurrence: non-recurrent Qualified Code(s): J01.00 - Acute maxillary sinusitis, unspecified Patient Disposition: Home Condition: Stable Instructions: Antibiotic Form, Sinusitis (ED), Lymphadenopathy (ED), Cyst (ED) Additional Instructions: Culture obtained of the draining Pilar cyst-will send to the lab and await test results for treatment Increase fluids and stay well hydrated May take Tylenol or motrin as directed on bottle for pain/fever May use Flonase 1 spray in each nare daily May take OTC antihistamines such as Zyrtec or Claritin daily as directed on bottle May apply Vicks vapor rub to chest to open sinuses Sinus rinses for congestion Go to the ED if you develop a worsening in your condition- high fever not controlled by Tylenol or Motrin, dehydration, weakness, lethargy, shortness of breath, or chest pain. Follow up with your PCP in 3-5 days if symptoms persist. May follow-up with general surgeon-Dr. Zamora is national stormwater leader but may contact Dr. Cutler or Dr. Valdivia office. May call today to schedule an appointment Patient Language: Omani Prescriptions: No Action sertraline 100 mg tablet 100 mg PO DAILY Qty: 90 2RF Rx Instructions: Ok to take at bedtime if causes drowsiness. progesterone micronized 100 mg capsule 100 mg PO QPM Qty: 90 3RF Follow-up/Referrals: Santy Driscoll MD [Primary Care Provider] - Bertin Cunningham DO [Physician] - 1 Day (Pilar cyst) Time of Disposition: 08:58 Quality NIHSS Nursing Documentation ED NIHSS nursing documentation: reviewed/agree
== END 2025-03-15 09:08 | disposition home or self-care (01) ==
PROVIDERS: Emergency Provider Nurse Practitioner Family; PCP Family Medicine
DX: L72.11 Pilar cyst (principal); R59.0 Localized enlarged lymph nodes; J01.00 Acute maxillary sinusitis, unspecified
CPT/HCPCS: 99211; 99213; G0463

== ENCOUNTER 2025-05-18 00:49 | Day surgery (SDC) | payer BC, SELFPAY ==
[2025-05-12 09:07] VITALS: BMI 24.3
--- NOTE | 2025-05-12 09:15 | PC.NURSE ---
[facility] has started construction of its new state of the art ER which will open Spring 2026. With this, we anticipate parking may be a challenge for some our surgical patients and families. Parking spaces are limited but are available for all Surgical, obstetrics, and ER patients sharing this lot. If you arrive and find you are having a hard time finding a parking space, please note that we understand the challenges, please drive around the hospital and park near Hospital Entrance 1. When you enter this entrance, you can ask a volunteer to direct or take you back to the surgical waiting area to check in. We appreciate everyone?s understanding of these expected challenges while we build for your future. Report to the Outpatient Waiting Room, entrance under the green pavilion located off [address], at time _1000_ on date _[id number]_. Planned Procedure Time: _1200_.? Time changes happen often and if your time is changed the preop area will call you the afternoon before. - You and your visitor will be asked to self-screen and do not enter if you have any COVID symptoms. Please call surgeon if you need to reschedule. - A mask is optional within the hospital at this time. Patients may have clear liquids (water, carbonated beverages, clear teas, apple juice) until 3 hours prior to surgery with a maximum of 20 ounces. - No food from midnight until time of surgery and no smoking, or chewing tobacco (or any form of nicotine). No chewing gum, candy or mints. Take only the following medications with a SIP of water on the morning of surgery: __None_ DO NOT STOP ANY OF YOUR OTHER PRESCRIPTION MEDICATIONS PRIOR TO SURGERY EXCEPT THE FOLLOWING Hold all vitamins and supplements for 3 days per anesthesiologist. Medications to discontinue per physician Date to take last dose Please no make-up, nail singaporean, hairspray, perfume, deodorant, or body powder the day of surgery.? No jewelry (including any body piercings) or valuables the day of surgery, leave them at home.? Please take a shower or bath the night before, or the morning of, surgery with an antibacterial soap.? Wear comfortable, loose fitting clothing.? - Jewelry must be removed prior to entering the operating room.? Rings and piercings that are not removed may be cut off. - The hospital will not accept responsibility for valuables.? - Please leave all valuables, including medications, at home the day of surgery. If you are going home after surgery, a licensed airport shuttle driver must drive you home.? - NO public transportation without another adult if you receive anesthesia. - We recommend that an adult stay with you for 24 hours following discharge. - We also recommend that you do not drive, make important decision, drink alcoholic beverages, or take any drugs that were not prescribed by your health care provider for at least 24 hours after your discharge time. Follow any additional instructions given to you from your surgeon. Telephone instructions given to __Yvette__and asked if any additional questions and then verbalized understanding. Patient advised to call surgeon office or pre surgery nurse liaison [phone] if any additional questions.
[2025-05-18] VITALS (8 sets, daily range): BP systolic 111–148; BP diastolic 71–91; PULSE 65–77; RESP 16–20; TEMP 36.2–36.4; O2SAT 98–100; BMI 26.4
--- OUTSIDE RECORDS SUMMARY | 2025-05-18 00:52 | XMS_ITS | Clinical Summary ---
Author Organization [facility] Address [address] [place] [address] Care Team Providers Care Panelboard Operator Name Role Phone Santy Driscoll MD Primary Care Provider [phone] Source Comments [facility],non-owned Affiliates and Associated Physician Practices is amultiple site organization consisting of ambulatory clinics and hospital sitesin [place], [place], [place] and [place]. This disclosure is being madepursuant to the Care Everywhere program and may not contain all information available regarding this patient. 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
--- OUTSIDE RECORDS SUMMARY | 2025-05-18 00:52 | XMS_ITS | Clinical Summary ---
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 Gender Identity Female 02/16/2018 8:28 AM CDT Sexual Orientation Not on file Obstetrics History Last Filed Vital Signs Vital Sign Reading Time Taken Comments Blood Pressure 115/74 07/05/2023 11:10 AM WEIGHT TESTER Pulse 68 07/05/2023 11:10 AM WEIGHT TESTER Temperature 36.3 C (97.4 F) 07/05/2023 11:10 AM WEIGHT TESTER Respiratory Rate 20 07/05/2023 11:10 AM WEIGHT TESTER Oxygen Saturation 100% 07/05/2023 11:10 AM WEIGHT TESTER Inhaled Oxygen Concentration - - Weight 65 kg (143 lb 4.8 oz) 07/03/2023 11:58 PM WEIGHT TESTER Height 167.6 cm (5' 6) 07/03/2023 11:58 PM WEIGHT TESTER Body Mass Index 23.13 07/03/2023 11:58 PM WEIGHT TESTER Plan of Treatment Health Maintenance Due Date [...] BILATERAL W TRELL Routine 09/15/2016 9:19 AM WEIGHT TESTER from Last 3 Months or Most Recently Relevant to Health Maintenance Results * Diagnostic Mammogram Bilateral W Trell (09/15/2016 9:19 AM WEIGHT TESTER) Anatomical Region Laterality Modality Breast Bilateral Mammography 09/15/2016 9:19 AM WEIGHT TESTER Narrative 09/15/2016 12:46 PM WEIGHT TESTER SAMIRA LINO M.D. FINAL REPORT ACC# Date Time Exam [id number] Sep 15, 2016 09:19:00 [facility] [id number] Dig Breast Trell Rickie Technologist(s): Tamiko Lozano; ; [id number] Sep 15, 2016 08:44:00 [facility] [id number] Breast US [facility] [id number] Sep 15, 2016 09:19:00 [facility] 57455 [employer], inc CAD, bilat Technologist(s): Tamiko [...] by the patient was performed by the dewatering filtering supervisor and by the radiologist. A few scattered [...] 2: Benign finding. Requested By: Janet Cancino GRAIN COMMODITY MANAGER Dictated By: SAMIRA LINO M.D. on Sep 15 2016 12:46P This document has been electronically signed by: SAMIRA LINO M.D. on Sep 15 2016 12:46P [id number] Procedure Note Provider, MD Thuy - 12/09/2016 SAMIRA LINO M.D. FINAL REPORT ACC# Date Time Exam [id number] Sep 15, 2016 09:19:00 [facility] 66465 Dig Breast Trell Rickie Technologist(s): Tamiko Lozano; ; [id number] Sep 15, 2016 08:44:00 [facility] [address] Breast US [facility] [id number] Sep 15, 2016 09:19:00 [facility] [address] [employer] CAD, bilat Technologist(s): Tamiko Lozano; ; [...] by the patient was performed by the dewatering filtering supervisor and by the radiologist. A few scattered [...] 2: Benign finding. Requested By: Janet Cancino GRAIN COMMODITY MANAGER Dictated By: SAMIRA LINO M.D. on Sep 15 2016 12:46P This document has been electronically signed by: SAMIRA LINO M.D. on Sep 15 2016 12:46P [id number] [facility] Provider MD [facility] MAMMO PROCEDURES Maria C l Result from Last 3 Months or Most Recently Relevant to Health Maintenance Insurance [facility] PL[facility] PL[facility] Advance Directives For more information, please contact: [phone] * Full Code (Latest Code Status on File) Date Activated Date Inactivated Comments 07/03/2023 10:51 PM 07/05/2023 9:03 PM Care Teams Motor Vehicle Representative Relationship Specialty Start Date End Date Santy Driscoll MD PCP - General Family Medicine 02/16/18 Todd Monsalve MD [address] [place] [address] [address] [place] [place] [address] Surgeon General Surgery 07/05/23
[2025-05-18] MEDS: LACTATED RINGERS 1,000 ML 30 ML IV CONT (11:04)
[2025-05-18 11:05] LABS: BEDSIDEPREGUCG Negative (Negative)
--- NOTE | 2025-05-18 11:53 | WPDANESEPPF ---
Anes - Initial Pre Proc Eval Procedure: Operation Date: 05/18/25 12:00 Proposed Procedures p Excisional Biopsy of Right Scalp Pilar Cyst - Kinsey Granados MD Date/Time: 05/18/25 11:53 Surgeon: Kinsey Granados MD Pre Op Diagnosis: infected pilar cyst Patient Data Age: 40 Gender: F Height: 1.68 m Weight: 74.1 kg Last Vital Signs Temp 36.4 C L 05/18/25 11:01 Pulse 65 05/18/25 11:01 BP 112/74 05/18/25 11:01 Pulse Ox 100 05/18/25 11:01 O2 Del Method Room Air 05/18/25 11:01 Allergies Allergy/AdvReac Type Severity Reaction Status Date / Time gemifloxacin Allergy Intermediate Unknown Verified 05/18/25 11:00 azithromycin Allergy Unknown Unknown Verified 05/18/25 11:00 cefuroxime Allergy Unknown red/purple Verified 05/18/25 11:00 bumps Penicillins Allergy Unknown Unknown Verified 05/18/25 11:00 Home Medications ?Medication ?Instructions ?Recorded ?Confirmed ?Type sertraline 100 mg tablet 100 mg PO DAILY anxiety #90 tabs 11/02/24 05/12/25 Rx progesterone micronized 100 mg 100 mg PO QPM #90 caps 12/15/24 05/12/25 Rx capsule Laboratory Tests 05/18/25 11:01 POC Urine HCG, Qual Negative (Negative) Patient hx anesthesia problems: none Family hx anesthesia problems: none Results Review: All pre-operative results and documents have been reviewed as part of the pre-operative evaluation. [facility] Past Medical History Medical History Mass of left axilla Need for lipid screening Screening for thyroid disorder Decreased creatinine clearance Elevated LFTs Elevated hemoglobin A1c Screening mammogram for breast cancer Needs flu shot Routine history and physical examination of adult Screening for diabetes mellitus Surgical History Surgical History S/P cholecystectomy H/O gynecological procedure 03/2018 [facility] Delivery by section S/P excision of skin lesion, follow-up exam Family History Family History Other Depression Diabetes mellitus Hypertension Social History Social History (Reviewed 03/21/25 @ 14:21 by CARL Marti Smoking status: Never smoker Alcohol intake: never Substance use: never Substance use type: does not use Do You Feel Safe in your Home?: Yes Lack of Transportation: No Lack of Food: Never True Current Housing: I Have Housing Concerned About Future Housing: No Difficulty Paying Gas/Electric Bills: No Difficulty Paying for Meds: No Currently Unemployed: No Education: Bachelor's Degree Difficulty w/ Childcare or Family Care: No Living arrangements: with family Occupation/Education: occupation 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 Gender identity (if verbalized by the patient): Female Sexual Orientation (if Verbalized by the Patient): Straight or Heterosexual Anes - Eval Final PreProcedure Day of Procedure 05/18/25 11:53 Patient weight: overweight Heart: regular rate and rhythm Lungs: clear to auscultation Airway: Mallampati scale class II Neurological: alert and oriented Last oral intake: >/= 8 hours ASA classification: II Emergent: no Anesthetic plan: proceed Anesthesia type and monitoring: general LMA and standard monitoring Results Review: All pre-operative results and documents have been reviewed as part of the pre-operative evaluation. Informed Consent: The patient's anesthetic plan and its attendant risks and benefits were discussed with the patient/family/POA. Questions were solicited and answers provided to the satisfaction of the patient/family/POA.
--- NOTE | 2025-05-18 12:02 | PM.IMHP ---
H&P: HPI History of Present Illness Date/Time: 05/18/25 12:02 Chief Complaint: pilar cyst x 4 Narrative: Courtney presents to the office for a follow up after recent urgent care visit for a scalp cyst. Patient reports she has had several scalp lumps for quite some time. She states she has a history of scalp cyst removal in the past. Of note, pt reports the one that was previously infected has resolved. Review of Systems Review of Systems: All systems reviewed & are unremarkable except as noted in HPI and below PMFSH Past Medical History Medical History Mass of left axilla Need for lipid screening Screening for thyroid disorder Decreased creatinine clearance Elevated LFTs Elevated hemoglobin A1c Screening mammogram for breast cancer Needs flu shot Routine history and physical examination of adult Screening for diabetes mellitus Surgical History Surgical History S/P cholecystectomy H/O gynecological procedure 03/2018 [facility] Delivery by section S/P excision of skin lesion, follow-up exam Family History Family History Other Depression Diabetes mellitus Hypertension Social History Social History Smoking status: Never smoker Alcohol intake: never Substance use: never Substance use type: does not use Do You Feel Safe in your Home?: Yes Lack of Transportation: No Lack of Food: Never True Current Housing: I Have Housing Concerned About Future Housing: No Difficulty Paying Gas/Electric Bills: No Difficulty Paying for Meds: No Currently Unemployed: No Education: Bachelor's Degree Difficulty w/ Childcare or Family Care: No Living arrangements: with family Occupation/Education: occupation 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 Gender identity (if verbalized by the patient): Female Sexual Orientation (if Verbalized by the Patient): Straight or Heterosexual Meds Home Medications and Allergies Home Medications ?Medication ?Instructions ?Recorded ?Confirmed ?Type sertraline 100 mg tablet 100 mg PO DAILY anxiety #90 tabs 11/02/24 05/12/25 Rx progesterone micronized 100 mg 100 mg PO QPM #90 caps 12/15/24 05/12/25 Rx capsule Allergies Allergy/AdvReac Type Severity Reaction Status Date / Time gemifloxacin Allergy Intermediate Unknown Verified 05/18/25 11:00 azithromycin Allergy Unknown Unknown Verified 05/18/25 11:00 cefuroxime Allergy Unknown red/purple Verified 05/18/25 11:00 bumps Penicillins Allergy Unknown Unknown Verified 05/18/25 11:00 Vital Signs Vital Signs - 24 hr 05/18/25 11:01 Temperature 36.4 C L Pulse Rate 65 Blood Pressure 112/74 Pulse Oximetry 100 Oxygen Delivery Room Air Exam Const: General: cooperative, comfortable and no acute distress HENMT: Other: moderate to large pilar cyst x 4 on R scalp, no s/s active infection, drainage Resp: Auscultation: clear to auscultation bilaterally Cardio: Rate: regular rate Rhythm: regular rhythm Assessment and Plan Assessment and plan (1) Pilar cysts: Code(s): L72.11 - Pilar cyst Status: Acute Assessment and Plan: setup for exc bx of pilar cyst x 4
--- NOTE | 2025-05-18 12:04 | WPDHPUPDATE1 ---
History and Physical Update Update Date/Time: 05/18/25 12:04 History and Physical has been reviewed, including an updated exam of the patient. There are NO changes in the patient's condition. Risks, benefits, and alternatives have been discussed and questions answered. Patient agrees to proceed with procedure.
[2025-05-18] MEDS: ceFAZolin 2 GM in SODIUM CHLORIDE 0.9% IV 50 ML 100 ML IVPB (12:32)
--- NOTE | 2025-05-18 12:59 | S_PTH ---
PATIENT: Courtney Reina LOC: [facility] U#:[id number] AGE/SX: 40/F ROOM: RE05/18/[address]: Kinsey Granados MD : [id number] BED: DIS: 05/18/2025 SPEC #: [id number] RECD: 05/18/25 14:39 STATUS: CUCO REQ #: [id number] CARLY: 05/18/25 12:[address]: Kinsey Granados DEPT: [facility] Surgical RECD BY: Haleigh Butler ENTERED: 05/18/25 14:40 SP TYPE: Surgical OTHR DR: Santy Driscoll MD Tissues: A - Cyst Procedures: Hematoxylin and Eosin Stain Gross and Microscopic Level 4
[2025-05-18] MEDS: BUPIVACAINE/EPINEPHRINE 0.5% 50 ML VIAL 30 ML INFILTRATE (13:01)
--- NOTE | 2025-05-18 13:21 | W.PM.PROC2 ---
Procedure Note - Detailed Date of Procedure 05/18/25 Pre-op Diagnosis Right scalp Pilar cyst x4 Post-op Diagnosis Same Procedure Performed excisional biopsy right scalp pilar cyst x4 measurements as follows 1 x 1 x 0.5 cm, 2 x 1.3 x 0.6 cm, 2 x 1.7 x 0.7 cm, 1.8 x 1.4 x 0.7 cm Surgeon Kinsey Granados MD Anesthesia General and Local Indications 40-year-old female presenting with multiple right scalp pilar cyst. Patient reports enlargement and symptomatology over years. Patient has had infections in cyst previously. Findings Right-sided Pilar cyst x4, no evidence of rupture or active infection Description of Procedure The patient was taken to the operating room and placed in the lateral position. After adequate induction of general anesthesia, the patient was prepped and draped in the normal sterile fashion. A time-out was then done to verify the patient's identity, as well as the procedure being performed. I began by localizing all four cysts noted in the right scalp. Three were clustered together in the right presybeterian region, with 1 noted more posterior. I then proceeded to localize in and around the cystic masses. I then used a 15 blade scalpel to make a dermal incision over the most superior cyst in the right presybeterian region. This was carried down to the subcutaneous tissue. The cyst was located and I was able to bluntly dissect around the cyst with the hemostat. I was then able to remove the cyst in full taking down the posterior attachments with the Bovie cautery. This cyst was noted to measure 1 x 1 x 0.5 cm. It was noted to be completely intact with no evidence of rupture or infection. It will now be sent to pathology for further review. We then further localize the cavity. Hemostasis was noted. The dermis was then closed with interrupted 3-0 nylon sutures. Moving inferiorly, I made an incision over the next cyst in the dermis again using a 15 blade scalpel. This was again carried through the dermis and into the subcutaneous cavity. An intact cystic mass was encountered. I used the hemostat to bluntly dissect around the cyst. Then used Bovie cautery to take down the posterior attachments of the cyst to the subcutaneous tissue. The mass was then completely incised and noted to be intact. This measured 2 x 1.3 x 0.6 cm. This will be sent to pathology for further review. Hemostasis was again noted in the cavity. Further local anesthetic was placed. The skin was then closed with interrupted nylon sutures. The most inferior of the right presybeterian cyst was then excised. This was done by making a incision in the dermis above the cyst with a 15 blade scalpel. This was carried down to the subcutaneous tissue where this intact cystic mass was encountered. I bluntly dissected around the mass with the hemostat. The posterior attachments were taken down with the Bovie cautery and the mass was completely excised. It was noted to be intact and measured 2 x 1.7 x 0.7 cm. It will now be sent to pathology for further review. Hemostasis was noted the cavity and further local anesthetic was placed. The dermis was closed with interrupted 3-0 nylon sutures. Lastly, the right posterior scalp cyst was addressed. Again, a 15 blade scalpel was used to incise the dermis above the cystic mass. This was carried down to the subcutaneous tissue where an intact cyst was noted. I then bluntly dissected around the cyst with the hemostat. The posterior attachments were again taken down with the Bovie cautery. The Pilar cyst was completely excised and measured 1.8 x 1.4 x 0.7 cm. It was noted to be completely intact and sent to pathology. Hemostasis was noted in the cavity and further local anesthetic was placed. The skin was then closed with interrupted 3-0 nylon sutures. The patient tolerated these procedures well and was extubated postoperatively. She will be transferred to the recovery room in stable condition. Estimated Blood Loss 10 Pathology Yes Complications No immediate complications Condition Stable Disposition PACU [facility] Billing Surgery - Charge Forward: Surgery Billing
== END 2025-05-18 15:25 | disposition home or self-care (01) ==
PROVIDERS: Anesthesiology; PCP Family Medicine; Visit Provider Surgery
PROC: (CPT 11420; principal; 2025-05-18 12:00)
DX: L72.11 Pilar cyst (principal); Z98.890 Other specified postprocedural states; Z90.49 Acquired absence of other specified parts of digestive tract
CPT/HCPCS: 11420; 11422 ×2; 11423; 88305; J0690; A9270; J1100; J2003; J2250; J2405; J2704; J3010; J7120